=== PATIENT | female | born 2000 | race Caucasian/White ===

== ENCOUNTER 2019-06-28 03:00 | Emergency (ER) | payer OTHER ==
[~2019-06-28] VITALS: Ht 154.9 cm; Wt 49.9 kg
[2019-06-28 03:06] VITALS: Ht 154.9 cm; Wt 49.9 kg
[2019-06-28 06:01] VITALS: BP 93/47
== END 2019-06-28 06:01 | disposition home or self-care (01) ==
LOC: ED 03:00
DX: R40.20 Unspecified coma (principal); T40.1X1A Poisoning by heroin, accidental (unintentional), initial encounter; Y92.89 Other specified places as the place of occurrence of the external cause